=== PATIENT | male | born 1980 | race Caucasian/White ===

== ENCOUNTER 2018-12-21 08:08 | Emergency (ER) | payer OTHER ==
[2018-12-21 08:16] VITALS: BP 131/89; PULSE 68; RESP 18; TEMP 98.3
[2018-12-21] MEDS ORDERED: KETOROLAC 60 MG/2 ML VIAL IM STA (08:29)
[2018-12-21] MEDS ORDERED: DIAZEPAM 5 MG TAB PO STA (08:29)
--- NOTE | 2018-12-21 08:31 | ED ---
Neck Injury/Pain HPI - General Chief Complaint: Neck Pain/Injury Stated Complaint: neck pain Time Seen by Provider: 12/21/18 08:17 Mode of arrival: ambulatory Limitations: no limitations - History of Present Illness Initial Comments: 38-year-old male presenting for neck pain x 6 hours. Patient states he was doing a lot of heavy lifting yesterday at work as well as at the gym. 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 Patient denies any specific injuries he denies any falls or direct trauma to the head or neck. Denies history of IV drug use or cancer. Patient denies fever or upper respiratory symptoms. Patient states he woke up this morning and his neck was stiff he states that her if he turned his head. Patient denies any radiation down the arms weakness of the upper extremities denies any headache nausea vomiting anterior neck pain visual changes or any other complaints. Patient denies any rashes remaining review of systems negative upon arrival patient appears well besides acute distress - Related Data Previous Rx's Medication Instructions Recorded Cyclobenzaprine [Flexeril] 10 mg PO TID PRN 7 Days #21 tab 12/21/18 Ibuprofen 800 mg PO Q8H PRN 7 Days #21 tablet 12/21/18 Allergies Allergy/AdvReac Type Severity Reaction Status Date / Time No Known Allergies Allergy Verified 12/21/18 08:12 Review of Systems ROS Statement: Those systems with pertinent positive or pertinent negative responses have been documented in the HPI. ROS Other: All systems not noted in ROS Statement are negative. Past Medical History Past Medical History: COPD History of Any Multi-Drug Resistant Organisms: None Reported Past Surgical History: No Surgical Hx Reported Past Psychological History: No Psychological Hx Reported Smoking Status: Current every day smoker Past Alcohol Use History: None Reported, Daily, Heavy Past Drug Use History: Marijuana General Exam - General Exam Comments Initial Comments: General: The patient is awake and alert, in no distress, and does not appear acutely ill. Eye: +3 mm pupils are equal, round and reactive to light, extra-ocular movements are intact. No nystagmus. There is normal conjunctiva bilaterally. No signs of icterus. Ears, nose, mouth and throat: There are moist mucous membranes and no oral lesions. Neck: The neck is supple, there is no tenderness or JVD. Patient was paravertebral tenderness mostly left-sided of the cervical spine. Patient is limiting range of motion and obvious left-sided muscle tension. Limited range of motion secondary to pain Cardiovascular: There is a regular rate and rhythm. No murmur, rub or gallop is appreciated. Respiratory: Lungs are clear to auscultation, respirations are non-labored, breath sounds are equal. No wheezes, stridor, rales, or rhonchi. Musculoskeletal: Normal ROM, no tenderness. Strength 5/5. Sensation intact. Pulses equal bilaterally 2+. Neurological: A&O x 3. CN II-XII intact grossly, There are no obvious motor or sensory deficits. Coordination appears grossly intact. Speech is normal. Skin: Skin is warm and dry and no rashes or lesions are noted. Psychiatric: Cooperative, appropriate mood & affect, normal judgment. Limitations: no limitations Course Vital Signs 12/21/18 08:12 Temperature 98.3 F Pulse Rate 68 Respiratory 18 Rate Blood Pressure 131/89 O2 Sat by Pulse 98 Oximetry Medical Decision Making - Medical Decision Making There is now presented for neck stiffness woke up with this morning developed a lot of heavy lifting yesterday. Patient has obvious muscle tension. Neurologic features. No radicular symptoms. Patient appears well no direct trauma. At this time feel patient has cervical muscle strain with acquired torticollis. Patient was instructed to apply heat to the area he was given Valium and Toradol emergency department and be discharged with prescription for ibuprofen 800mg, and flexeril. Patient to follow primary care provider in 24-48 hours return parameters were discussed the patient is discharged after discussed the case with attending provider Dr. Matisa. Disposition Clinical Impression: Neck strain Disposition: HOME SELF-CARE Condition: Good Instructions (If sedation given, give patient instructions): Cervical Strain (ED) Additional Instructions: Please use medication as discussed-do not drive or operate machinery while taking Flexeril as discussed. Please follow-up with family doctor in the next 2 days. Please return to emergency room if the symptoms increase or worsen or for any other concerns. Prescriptions: Cyclobenzaprine [Flexeril] 10 mg PO TID PRN 7 Days #21 tab PRN Reason: Muscle Spasm Ibuprofen 800 mg PO Q8H PRN 7 Days #21 tablet PRN Reason: Pain Is patient prescribed a controlled substance at d/c from ED?: No Referrals: Avel Cortez MD [Primary Care Provider] - 1-2 days Time of Disposition: 08:31
== END 2018-12-21 08:38 | disposition home or self-care (01) ==
LOC: EC 08:08
DX: S16.1XXA Strain of muscle, fascia and tendon at neck level, initial encounter (principal); F17.200 Nicotine dependence, unspecified, uncomplicated; X50.0XXA Overexertion from strenuous movement or load, initial encounter; Y92.9 Unspecified place or not applicable; Y92.39 Other specified sports and athletic area as the place of occurrence of the external cause; Y99.0 Civilian activity done for income or pay
CPT/HCPCS: 99283; 96372; J1885

== ENCOUNTER 2019-11-07 11:42 | Emergency (ER) | payer OTHER ==
[2019-11-07 11:46] VITALS: RESP 18
[2019-11-07] MEDS ORDERED: KETOROLAC 15 MG/ML 1 ML VIAL IM STA (11:59)
[2019-11-07] MEDS ORDERED: LIDOCAINE 5% PATCH TOPICAL STA (11:59)
--- NOTE | 2019-11-07 12:02 | ED ---
General Adult HPI - General Chief complaint: Trauma Stated complaint: rt sided rib pain Time Seen by Provider: 11/07/19 11:47 Source: patient, RN notes reviewed Mode of arrival: ambulatory Limitations: no limitations - History of Present Illness Initial comments: 39-year-old male presents to the emergency room for a chief complaint of "rib pain" times one day. Patient reports yesterday he was down by the docks play wrestling with a kid. Patient states he felt a sudden pain in the right anterior part of his chest. States he hasn't hurting since that time. States it hurts to move and to take a deep breath. States it hurts to press on the area. Patient had a call into work today. Denies any abdominal pain. Denies any back pain. Denies any other injuries. No fevers or chills.Patient has no other complaints at this time including shortness of breath, chest pain, abdominal pain, nausea or vomiting, headache, or visual changes. - Related Data Previous Rx's Medication Instructions Recorded Lidocaine 5% Patch [Lidoderm 5% 1 patch TOPICAL DAILY PRN 5 Days 11/07/19 Patch] #5 patch Allergies Allergy/AdvReac Type Severity Reaction Status Date / Time No Known Allergies Allergy Verified 11/07/19 12:11 Review of Systems ROS Statement: Those systems with pertinent positive or pertinent negative responses have been documented in the HPI. ROS Other: All systems not noted in ROS Statement are negative. Past Medical History Past Medical History: COPD History of Any Multi-Drug Resistant Organisms: None Reported Past Surgical History: No Surgical Hx Reported Past Psychological History: No Psychological Hx Reported Smoking Status: Current every day smoker Past Alcohol Use History: Daily, Heavy Past Drug Use History: Marijuana General Exam Limitations: no limitations General appearance: alert, in no apparent distress Head exam: Present: atraumatic, normocephalic, normal inspection Eye exam: Present: normal appearance, PERRL, EOMI. Absent: scleral icterus, conjunctival injection, periorbital swelling ENT exam: Present: normal exam, mucous membranes moist Neck exam: Present: normal inspection, full ROM. Absent: tenderness, meningismus Respiratory exam: Present: normal lung sounds bilaterally, chest wall tenderness (Tenderness noted to the right anterior rib margin all around ribs 6/7. There is no external sign of trauma.). Absent: respiratory distress, wheezes, rales, rhonchi, stridor Cardiovascular Exam: Present: regular rate, normal rhythm, normal heart sounds. Absent: systolic murmur, diastolic murmur, rubs, gallop, clicks GI/Abdominal exam: Present: soft, normal bowel sounds. Absent: distended, tenderness, guarding, rebound, rigid Back exam: Absent: vertebral tenderness Course Vital Signs 11/07/19 11/07/19 11/07/19 11:43 11:56 11:59 Temperature 98.0 F Pulse Rate 73 73 Respiratory 18 18 18 Rate Blood Pressure 163/104 158/113 O2 Sat by Pulse 97 98 Oximetry 11/07/19 11/07/19 11/07/19 12:09 12:32 12:40 Temperature Pulse Rate 73 70 Respiratory 18 18 18 Rate Blood Pressure 172/109 151/107 146/104 O2 Sat by Pulse 98 97 Oximetry 11/07/19 13:42 Temperature 97.7 F Pulse Rate 74 Respiratory 18 Rate Blood Pressure 146/104 O2 Sat by Pulse 98 Oximetry Medical Decision Making - Medical Decision Making X-ray of the right ribs shows no evident displaced fracture. Patient was given Toradol. Symptoms are consistent with rib contusion versus intercostal muscle strain. Recommended Motrin and Tylenol. Recommend he follow up with primary care and return for any worsening symptoms. Disposition Clinical Impression: Rib pain on right side Disposition: HOME SELF-CARE Condition: Good Instructions (If sedation given, give patient instructions): Costochondritis (ED) Additional Instructions: Please take Motrin and Tylenol for pain. Please follow-up with primary care in 1-2 days. If you have worsening symptoms return to the emergency room. Prescriptions: Lidocaine 5% Patch [Lidoderm 5% Patch] 1 patch TOPICAL DAILY PRN 5 Days #5 patch PRN Reason: Pain Is patient prescribed a controlled substance at d/c from ED?: No Referrals: Avel Cortez MD [Primary Care Provider] - 1-2 days Time of Disposition: 13:11
[2019-11-07 12:54] VITALS: BP 146/104
--- NOTE | 2019-11-07 13:07 | XR ---
Chest x-ray and right RIBS HISTORY: Pain, trauma Frontal view of the chest and 4 views the right RIBS There is no pneumothorax or pleural effusion. Chest x-ray shows no acute cardiopulmonary disease. No evident displaced rib fracture. IMPRESSION: No evident displaced fracture, bone scan could be performed for increased sensitivity as indicated.
[2019-11-07 13:44] VITALS: PULSE 74; TEMP 97.7
== END 2019-11-07 13:43 | disposition home or self-care (01) ==
LOC: EC 11:42
DX: R07.81 Pleurodynia (principal); F17.200 Nicotine dependence, unspecified, uncomplicated
CPT/HCPCS: 71101; 99283; 96372; J1885